=== PATIENT | female | born 1960 | race African-American/Black ===

== ENCOUNTER → 2023-09-08 18:44 | Outpatient (REF) | payer OTHER, SELFPAY | LOC: RAD 18:44 | PROVIDERS: ATTENDING PHYSICIAN Physician Assistant Medical; FAMILY PHYSICIAN Family Medicine | DX: M25.561 Pain in right knee (principal); M25.512 Pain in left shoulder | CPT/HCPCS: 73030; 73564 ==

== ENCOUNTER → 2023-10-30 19:23 | Outpatient (REF) | payer OTHER, SELFPAY | LOC: MRI 3T 19:23 | PROVIDERS: ATTENDING PHYSICIAN Family Medicine | DX: M25.561 Pain in right knee (principal); M67.814 Other specified disorders of tendon, left shoulder; M25.512 Pain in left shoulder | CPT/HCPCS: 73221; 73721 ==

== ENCOUNTER 2024-01-10 13:20 | Observation (INO) | payer OTHER, SELFPAY ==
[2024-01-10] VITALS (10 sets, daily range): BP systolic 81–128; BP diastolic 47–86; BMI 24.7; BMI 25.3
--- NOTE | 2024-01-10 09:11 | ED.GENMED ---
History of Present Illness
General
Chief Complaint: Rectal Bleeding
Source: patient
Exam Limitations: none
Time Seen by Provider: 01/10/24 09:10
Nursing documentation reviewed up to this point in time: agreed with
History of Present Illness
History of Present Illness:
63-year-old female with history of patient presents to the Emergency Department with rectal bleeding.
12/23/23, travelling out of on license of [facility], called PCP Dr. Barfield for LLQ pain and started Augmentin 875 BID which she took for 4 days then stopped as she felt better.
12/[address] Rice, all good, encouraged to make f/u appointment with PCP for 01/04 but never did as asymptomatic
12/29-12/31 had unusual vaginal bleeding (she is on Prempro so she stopped that and bleeding stopped). No vaginal bleeding since
Has had mild LLQ pain intermittently during this time
Today awakened with urge to defecate, had large amount liquid blood per rectum x 2. A third time, passed a large clot. (Pictures shown to me)
Denies SOB, CP, fever, feels a little lightheaded, has mild LLQ pain at this time.
Last colonoscopy 5 yrs ago at [facility], showing diverticulosis
Past History
Past History
ED Past Medical History: None
ED Past Surgical History: None
Social History
Tobacco: Non-smoker
Alcohol: Occasional
Personal:
Living: with family
Employment: Employed
Review of Systems
Review of Systems
Allergies reviewed?: Yes
All Other Systems: ROS reviewed and negative except as documented in HPI and ROS
Constitutional: Denies fever or fatigue
Respiratory: Denies trouble breathing
Cardiac: Denies chest pain
ABD/GI: Reports abdominal pain and bloody stools; Denies nausea or vomiting
: Denies dysuria, difficulty voiding or urgency
Musculoskeletal: Reports no symptoms
Skin: Reports no symptoms
Neurological: Reports no symptoms
Phy Exam
Physical Exam
Physical Exam:
GENERAL: No acute distress. A&Ox3.
CONSTITUTIONAL: Afebrile.
EYES: PERRL, conjunctivae normal
ENMT: moist mucus membranes, Pharynx nl
RESPIRATORY: Regular respirations, nonlabored, lungs clear.
CARDIOVASCULAR: Regular rate and rhythm, no murmurs, no rubs.
GI: Soft, mild LLQ tenderness, normal BS
Rectal: maroon stool heme positive
MUSCULOSKELETAL: Moves with ease. Well perfused.
SKIN: Warm, dry, normal
PSYCH: Normal mood and affect. Well kept, interactive and appropriate
NEUROLOGIC: Awake, alert and oriented. No focal neurological deficits
Course
Orders/Labs/Results
Orders:
Orders
01/10/24 09:32
IV Insert/Care/Rem.- Treatment PRN
01/10/24 09:33
0.9% Sodium Chloride 1000 ml [Nss] 1,000 ml IV BOLUS
01/10/24 09:34
CT Abd/Pel (IV only)-DH only Urgent
Comment:
Reason For Exam: rectal bleeding LLQ pain
01/10/24 09:47
Complete Blood Count/With Diff Urgent
Comprehensive Metabolic Panel Urgent
Lipase Urgent
PTT Urgent
Prothrombin Time Urgent
01/10/24 12:10
GASTROINTESTINAL CONSULT Urgent
Consulting Provider: Terry Patel
Was physician already notified: Yes
Reason for consult: Rectal bleeding
01/10/24 13:02
Admit/Transfer Patient As Directed
Co-Sign Provider:
Level of Care: Observation services
Assign to:: Medical/Surgical
Physician / Group: son ambrocio
Diagnosis: bright red blood per rectum concern divertic bleed vs diverticulitis
Code Status As Directed
Resuscitation Status: Full Code
01/10/24 13:04
PRN Pain Medication Management As Directed
May give lesser potent ordered pain med per pt: Yes
preference::
Protocol:: Medication orders for pain may be administered in a
manner that supports deferring to patient preference
when the pt is:
- Requesting an ordered lesser potent pain medication.
Least to most potent pain medications are defined
as: acetaminophen < NSAID < tramadol < opioids
(morphine, oxycodone, hydromorphone).
- Requesting a lesser dose of the same medication IF
ORDERED.
- Requesting a less intrusive route of administration
if both routes are prescribed by the provider (PO <
IV).
01/10/24 Dinner
Full Liquids
At Your Request: Full Participation
01/10/24 15:01
Acetaminophen [Tylenol] 650 mg PO Q4HPRN PRN
01/10/24 15:01
Activity As Directed
Activity Level: As Tolerated
Pneumatic Compression Sleeves As Directed
Type: Knee high
Vital Signs As Directed
Frequency: Per unit guidelines
Pt Eval And Treat Routine
Activity Level: As Tolerated
DX Deep Vein Thrombosis Video Routine
01/10/24 16:00
Type+Screen Urgent
BBK Wristband Number:
01/10/24 21:00
H&H Urgent
01/11/24 06:00
Complete Blood Count/With Diff IN AM
Comprehensive Metabolic Panel IN AM
01/11/24 08:00
conj estrog-medroxyprogest costa [Prempro] 1 tablet PO DAILY
Abnormal Lab Results
01/10/24
09:47
RBC 3.48 L 10^6/uL
(4.20-5.40)
Hgb 11.3 L g/dL
(12.0-16.0)
Hct 32.7 L %
(37.0-47.0)
MCH 32.5 H pg
(27.0-31.0)
MPV 11.6 H fL
(7.4-10.4)
Lymphocytes % 19.8 L %
(20.5-51.1)
Total Protein 6.2 L g/dl
(6.3-8.2)
01/10/24 09:47
01/10/24 09:47
Vital Signs
Initial and Last Documented VS:
Initial Vital Signs
Temp Pulse Resp BP Pulse Ox
97.9 F 85 16 122/79 98
01/10/24 08:48 01/10/24 08:48 01/10/24 08:48 01/10/24 08:48 01/10/24 08:48
Last Documented Vital Signs
Temp Pulse Resp BP Pulse Ox
97.7 F 93 16 98/57 100
01/10/24 16:00 01/10/24 16:00 01/10/24 16:00 01/10/24 16:00 01/10/24 16:00
MDM/Problems Addressed
Differential Diagnosis Includes:
Diverticulitis, ruptured diverticulum, internal hemorrhoid
MDM/Problems Addressed:
63-year-old female with history of patient presents to the Emergency Department with rectal bleeding.
12/23/23, travelling out of on license of [facility], called PCP Dr. Barfield for LLQ pain and started Augmentin 875 BID which she took for 4 days then stopped as she felt better.
12/[address] Rice, all good, encouraged to make f/u appointment with PCP for 01/04 but never did as asymptomatic
12/29-12/31 had unusual vaginal bleeding (she is on Prempro so she stopped that and bleeding stopped). No vaginal bleeding since
Has had mild LLQ pain intermittently during this time
Today awakened with urge to defecate, had large amount liquid blood per rectum x 2. A third time, passed a large clot. (Pictures shown to me)
Denies SOB, CP, fever, feels a little lightheaded, has mild LLQ pain at this time.
Last colonoscopy 5 yrs ago 'diverticulosis.'
10:15
CBC Hgb 11.3
CMP Normal
12:[address] abd/pelvis w IV only contrast radiology report read: IMPRESSION:
No evidence for an acute inflammatory process in the abdomen or pelvis. Extensive colonic diverticulosis, without evidence for acute diverticulitis.
In to see pt: she just had another large liquid bloody stool.
Plan: Admit, GI consult Consider colonoscopy, CTA
Hospitalist notified of admisison
*Critical Care Note
Total Time (30-74mins, 75-104mins- exclusive of procedures): Not Applicable
ED Attending Note
-
Portions of this chart may have been created with voice recognition software.� Occasional wrong word or��sound alike� substitutions may have occurred due to the inherent limitations of voice recognition software.
Discharge Plan
Departure
Patient Disposition: Admit
Date of Disposition: 01/10/24
Time of Disposition: 12:08
Admit to: Med/Surg
Presentation/result/management discussed w/ accepting MD/DO: Hospitalist
Condition: Fair
Discharge Problem:
Rectal bleeding
Interventions
Interventions:
*General Assessment Last Done: 01/10/24 08:48
*Neglect/Abuse Screening Last Done: 01/10/24 08:48
ED- Fall Risk Assessment Last Done: 01/10/24 10:28
*Nursing Disposition Last Done: 01/10/24 14:31
ES-Yngynw-Zjcrvhxlou Assessment Last Done: 01/10/24 10:28
ED- Cardiac Assessment Last Done: 01/10/24 10:28
ED- Pulmonary Assessment Last Done: 01/10/24 10:28
Discharge Date and Time
Discharge Date/Time: 01/10/24 14:31
[2024-01-10] MEDS: NSS 1000 IV (10:06)
[2024-01-10 10:17] LABS: % Basophils 0.7 % (0-2); % Immature Granulocytes 0.5 % (0-0.5); % Lymphocytes 19.8 % (20.5-51.1); % Monocytes 7.7 % (1.7-9.3); % Neutrophils 69.3 % (42.2-75.2); Absolute Eosinophils 0.1 10^3/uL (0-0.7); Absolute Lymphocytes 1.2 10^3/uL (1.2-3.4); Absolute Monocytes 0.5 10^3/uL (0.1-0.6); Absolute Neutrophils 4.2 10^3/uL (1.4-6.5); Hematocrit 32.7 % (37.0-47.0); Hemoglobin 11.3 g/dL (12.0-16.0); Mean Corp Hgb Conc. 34.6 g/dL (33.0-37.0); Mean Corpuscular Hgb 32.5 pg (27.0-31.0); Mean Platelet Volume 11.6 fL (7.4-10.4); Nucleated Red Blood Cells % 0 %; Platelet Count 202 10^3/uL (130-400); Red Blood Cell Count 3.48 10^6/uL (4.20-5.40); Red Cell Dist. Width 13.9 % (11.5-14.5)
[2024-01-10 10:22] LABS: INR 0.98; PT 12.8 Sec (11.4-14.6)
[2024-01-10 10:23] LABS: APTT 26.7 Sec (23.4-35.0)
[2024-01-10 10:35] LABS: ALT (SGPT) 11 U/L (0-35); AST (SGOT) 21 U/L (14-36); Albumin 3.8 g/dl (3.5-5.0); Alkaline Phosphatase 52 U/L (38-126); Blood Urea Nitrogen 14 mg/dl (7-17); Carbon Dioxide 25 mmol/L (22-30); Chloride 107 mmol/L (98-107); Estimated Creatinine Clearance 77 ml/min; Glucose 96 mg/dl (70-99); Lipase 122 U/L (23-300); Potassium 4.1 mmol/L (3.5-5.1); Sodium 138 mmol/L (135-145); Total Bilirubin 0.6 mg/dl (0.2-1.3); Total Protein 6.2 g/dl (6.3-8.2); eGFR > 60.00
--- NOTE | 2024-01-10 12:30 | HPS.HSE ---
Family Physician
-
Family Physician: Rubin Barfield
Chief Complaint
-
Bright red blood per rectum, left lower quadrant pain 2.5 weeks ago
History of Present Illness
63-year-old female complaining of rectal bleeding. She reports a large amount of liquid blood per rectum x 2 this morning then a third episode with a large clot. While traveling out of state on 12/19/2023 she had left lower quadrant abdominal pain
with formed stool and 1 episode of rectal bleeding along with episode of vaginal bleeding and was started on 875 mg twice daily of Augmentin for which she took 4 days and felt better. She denies headache, sore throat, fever, chills, chest pain,
palpitations, shortness breath, cough, abdominal pain, nausea, vomiting, urinary symptoms. She never had follow-up. The patient did take 2 tablets of Excedrin yesterday for headache. Past medical history of diverticulosis, migraine headaches,
postmenopausal bleeding. There is family history maternal aunt and paternal uncle of colon cancer.
Medical History
Past Medical History
Past Medical History: Reports Other
Additional Past Medical History:
diverticulosis
migraine headaches,
postmenopausal bleeding.
Past Surgical History: Reports Other
Additional Past Surgical History:
Ganglion cyst removal
Social History
Tobacco: Non-smoker
Alcohol: None
Drug: None
Personal:
Living: With Family
Employment: Employed
Family History
Family History: Other (Mother breast cancer age 30, father dementia, maternal aunt, paternal uncle colon cancer)
Allergies / Home Medications
Allergies reflects when Allergies were last updated in [employer].
Home Medications with original date entered in [employer]
Allergy/Medication List:
Allergies
Allergy/AdvReac Type Severity Reaction Status Date / Time
No Known Allergies Allergy Verified 01/10/24 08:47
Home Medications
zenkozq-eqkqyyrpjptzw-zjwuggfw 250 mg-250 mg-65 mg tablet (Excedrin Extra Strength) 1 tab PO DAILYPRN PRN mirgraines 01/10/24
conj estrogen-medroxyprogesterone 0.45 mg-1.5 mg tablet (Prempro) 1 tab PO DAILY 01/10/24
Review of Systems
-
History Source: Patient
A 12 point ROS was completed and negative except as noted: Yes
Constitutional: Denies Fever or Chills
EENT: Denies Sore Throat or Runny Nose
Respiratory: Denies Cough or Trouble Breathing
Cardiac: Denies Chest Pain, Diaphoresis or Syncope
Abdomen/GI: Reports Abdominal Pain (Left lower quadrant) and Other (Bright red blood per rectum with large clot); Denies Nausea, Vomiting or Diarrhea
: Denies Dysuria, Frequency, Flank Pain or Incontinence
Musculoskeletal: Denies Joint Pain or Edema
Skin: Denies Itching or Rash
Neurological: Denies Dizzy, Headache or Weakness
Endocrine: Reports No Symptoms
Hematologic/Lymphatic: Reports No Symptoms
Psych: Reports Calm
Physical Exam
Vital Signs
Vital Signs
Temp Pulse Resp BP Pulse Ox
97.9 F 68 14 119/86 99
01/10/24 08:48 01/10/24 11:00 01/10/24 11:00 01/10/24 11:00 01/10/24 11:00
Physical Exam
General: Comfortable and Conversant; No Pain, Fever or Chills
HEENT: NormoCephalic, Anicteric, Moist mucous membranes, PERRLA, [place] Conjunctivae and No Ptosis
Respiratory: Clear; No Wheezes, Rales or Rhonchi
Cardiac: S1/S2 and Regular Rhythm; No Murmur, Rub, Gallop or Peripheral Edema
GI: Soft, Non Tender, Non Distended and Normal Bowel Sounds
Rectal: Other (Per ER had)
Musculoskeletal: No Clubbing and No Cyanosis
Skin: Warm and Dry
Neuro: AO x 3, No Motor Deficits, Nonfocal/grossly intact, Cranial Nerves Intact and No Sensory Deficits; No Slurred Speech, Facial Droop or Tremors
Psych: Calm
Laboratory Results
-
01/10/24 09:47
01/10/24 09:47
Laboratory Results
PT 12.8 Sec (11.4-14.6) 01/10/24 09:47
INR 0.98 01/10/24 09:47
APTT 26.7 Sec (23.4-35.0) 01/10/24 09:47
Total Bilirubin 0.6 mg/dl (0.2-1.3) 01/10/24 09:47
AST 21 U/L (14-36) 01/10/24 09:47
ALT 11 U/L (0-35) 01/10/24 09:47
Alkaline Phosphatase 52 U/L (38-126) 01/10/24 09:47
Lipase 122 U/L (23-300) 01/10/24 09:47
Impression/Plan
-
Impression/plan:
Observation MedSurg
#Bright red blood per rectum concern for diverticular bleed
Hgb 11.3
Type and screen
Will follow H&H
-Hold patient's Excedrin as needed for migraine as it contains aspirin
-Consult GI
CT abdomen pelvis with IV contrast: No acute inflammatory process in the abdomen or pelvis. Extensive colonic diverticulosis without diverticulitis
#Migraine headaches:
Hold patient's Excedrin as needed as it contains aspirin
# Postmenopausal bleeding managed with hormonal agents
-May continue Prempro
DVT prophylaxis
SCDs
Full code
--- NOTE | 2024-01-10 13:32 | W.PN.UPDATE ---
Update Note
Progress Note Update
This note serves as an addendum to the H&P by MARYANNE Myers, on January 10, 2024.
History of Presenting Illness
63-year-old female with past medical history of diverticulosis, migraine headaches and postmenopausal bleeding presented complaining of rectal bleeding. She reports a large amount of liquid blood per rectum x 2 this morning then a third episode with
a large dark clot(s), for which she showed images from her phone. While traveling out of state on 12/19/2023 she had left lower quadrant abdominal pain with formed stool and 1 episode of rectal bleeding along with episode of vaginal bleeding and was
started on 875 mg twice daily of Augmentin for which she took 4 days and felt better. She denied headache, sore throat, fever, chills, chest pain, palpitations, shortness breath, cough, abdominal pain, nausea, vomiting, or urinary symptoms. The
patient did take 2 tablets of Excedrin yesterday for headache. Patient has a family history of colon cancer.
Vital Signs
AFVSS
Physical Exam
General: Not in acute distress
HEENT: Normocephalic
Respiratory: Clear to Auscultation Bilaterally
Cardiac: S1/S2 and Regular Rhythm
GI: Soft, Non Tender, Non Distended and Normal Bowel Sounds
Musculoskeletal: No Cyanosis
Skin: Warm and Dry
Neuro: AAO x 3, No Motor Deficits, Nonfocal/grossly intact, Cranial Nerves Intact and No Sensory Deficits
Psych: Calm
Assessment/Plan
#Bright red blood per rectum concern for diverticular bleed
Hgb 11.3
Type and screen
Will follow H&H - recheck CBC this evening, if significant drop in Hgb then transfuse 1 unit of PRBC
-Hold patient's Excedrin as needed for migraine as it contains aspirin
-Consult GI
CT abdomen pelvis with IV contrast: No acute inflammatory process in the abdomen or pelvis. Extensive colonic diverticulosis without diverticulitis
#Migraine headaches:
Hold patient's Excedrin as needed as it contains aspirin
# Postmenopausal bleeding managed with hormonal agents
-May continue Prempro
-Will consider gynecology consult, but patient's last vaginal bleeding was 12 days ago
DVT prophylaxis
SCDs
Full code
[2024-01-10 16:18] LABS: Hematocrit 30.6 % (37.0-47.0); Hemoglobin 10.3 g/dL (12.0-16.0); Mean Corp Hgb Conc. 33.7 g/dL (33.0-37.0); Mean Corpuscular Volume 92.2 fL (81.0-99.0); Mean Platelet Volume 11.6 fL (7.4-10.4); Platelet Count 219 10^3/uL (130-400); Red Blood Cell Count 3.32 10^6/uL (4.20-5.40); Red Cell Dist. Width 14.2 % (11.5-14.5)
[2024-01-10 19:44] LABS: Hematocrit 30.3 % (37.0-47.0); Hemoglobin 10.3 g/dL (12.0-16.0)
--- NOTE | 2024-01-10 23:20 | PTCARENOTE ---
pt was using bathroom felt lightheaded and dizzy. assisted back to bed. BP=81/47 hr=57. pt resting in bed. recheck GN=849/65 HR=76. pt has had 3 bloody bowl movements since 7pm. pt states she feels she now feels better.
[2024-01-11] VITALS (7 sets, daily range): BP systolic 90–131; BP diastolic 49–80; PULSE 81–115
[2024-01-11 07:02] LABS: % Basophils 0.5 % (0-2); % Eosinophils 2.7 % (0-6); % Immature Granulocytes 0.2 % (0-0.5); % Monocytes 7.1 % (1.7-9.3); % Neutrophils 60.5 % (42.2-75.2); Absolute Eosinophils 0.2 10^3/uL (0-0.7); Absolute Lymphocytes 1.6 10^3/uL (1.2-3.4); Absolute Monocytes 0.4 10^3/uL (0.1-0.6); Absolute Neutrophils 3.4 10^3/uL (1.4-6.5); Hematocrit 28.2 % (37.0-47.0); Hemoglobin 9.6 g/dL (12.0-16.0); Mean Corpuscular Hgb 32.8 pg (27.0-31.0); Mean Corpuscular Volume 96.2 fL (81.0-99.0); Mean Platelet Volume 11.8 fL (7.4-10.4); Nucleated Red Blood Cells % 0 %; Platelet Count 182 10^3/uL (130-400); Red Blood Cell Count 2.93 10^6/uL (4.20-5.40); Red Cell Dist. Width 14.2 % (11.5-14.5); White Blood Cell Count 5.6 10^3/uL (4.8-10.8)
[2024-01-11 07:18] LABS: ALT (SGPT) < 10 U/L (0-35); AST (SGOT) 17 U/L (14-36); Albumin 3.4 g/dl (3.5-5.0); Alkaline Phosphatase 51 U/L (38-126); Blood Urea Nitrogen 10 mg/dl (7-17); Calcium 8.9 mg/dl (8.4-10.2); Carbon Dioxide 25 mmol/L (22-30); Chloride 105 mmol/L (98-107); Estimated Creatinine Clearance 68 ml/min; Glucose 93 mg/dl (70-99); Potassium 4.3 mmol/L (3.5-5.1); Sodium 136 mmol/L (135-145); Total Bilirubin 0.5 mg/dl (0.2-1.3); Total Protein 5.6 g/dl (6.3-8.2); eGFR > 60.00
--- NOTE | 2024-01-11 10:20 | W.PN.HOSP.TC ---
Today's Communication/Plan
-
Continue to monitor Hgb every 6 hours given patient's bleeding per rectum
Closely monitor vital signs and if symptoms of anemia develop with Hgb less than 10, will need to tranfuse PRBC
Appreciate gastroenterology and gynecology's evaluation of the patient
Assessment / Plan
Assessment / Plan
Physical Exam
General: Not in acute distress
HEENT: Normocephalic
Respiratory: Clear to Auscultation Bilaterally
Cardiac: S1/S2 and Regular Rhythm
GI: Soft, Non Tender, Non Distended and Normal Bowel Sounds
Musculoskeletal: No Cyanosis
Skin: Warm and Dry
Neuro: AAO x 3, No Motor Deficits, Nonfocal/grossly intact, Cranial Nerves Intact and No Sensory Deficits
Psych: Calm

CT Abdomen/Pelvis (as per radiologist's report)
'CHEST: The lung bases are clear.
ABDOMEN:
Stable 1.3 cm hemangioma at the hepatic dome. Tiny left hepatic lobe cyst. The gallbladder, bile ducts, pancreas, and spleen are unremarkable. Minor thickening of the bilateral adrenal glands. Left lower pole renal cyst measuring 5.4 cm. No
hydronephrosis.
The abdominal aorta is normal in caliber.
No abdominal or retroperitoneal lymphadenopathy.
Extensive colonic diverticulosis, without evidence for acute diverticulitis. No bowel wall thickening, obstruction, or inflammation. No extraluminal free air or fluid collection. Normal appendix.
PELVIS: Trace pelvic ascites. The urinary bladder and uterus are unremarkable.
SKELETON: No suspicious osseous lesion.
IMPRESSION:
No evidence for an acute inflammatory process in the abdomen or pelvis. Extensive colonic diverticulosis, without evidence for acute diverticulitis.'

Assessment/Plan
#Bright red blood per rectum concern for diverticular bleed
-Described as 'tissue' with blood from the rectum
-Hgb 11.3 initially, now down to 9.6, patient received IV fluids initially, and platelets are down so could be a component of hemodilution
-Continue to follow H&H --> if Hgb continues to drop and remains less than 10, patient is still passing blood per rectum, and having symptoms of anemia, will need to transfuse blood
Type and screen, consent for blood transfusion already obtained from the patient in the ER on the day of admission
-Hold patient's Excedrin as needed for migraine as it contains aspirin
-Consulted GI, appreciate recommendations
-Consulted gynecology
#Migraine headaches
-Hold patient's Excedrin as needed as it contains aspirin
# Postmenopausal bleeding managed with hormonal agents
-Consulted gynecology, appreciate evaluation and recommendations
#Weight loss recently
-Patient said she is up-to-date on all her cancer screening
-Possibly from any dietary changes
DVT prophylaxis
SCDs
Full code
Anticipated Discharge: 24 - 48 hours
Subjective/Interval History
-
Date of Service: January 11, 2024
Patient was seen and examined. She reported she had a bowel movement last night -- but it was more like tissue blood texture rather than actual stool, this morning she said she passed more tissue but it was better per her.
Objective Data
-
Labs:
Laboratory Results
01/11/24
05:42
WBC 5.6
Hgb 9.6 L
Hct 28.2 L
Plt Count 182
Sodium 136
Potassium 4.3
Chloride 105
Carbon Dioxide 25
BUN 10
Creatinine 0.9
Glucose 93
Calcium 8.9
Total Bilirubin 0.5
AST 17
ALT < 10
Alkaline Phosphatase 51
Vital Signs:
Vital Signs
Temp Pulse Resp BP Pulse Ox
97.4 F 85 16 117/64 98
01/11/24 07:55 01/11/24 07:55 01/11/24 07:55 01/11/24 07:55 01/11/24 07:57
I&O
01/10/24 01/11/24 01/12/24
06:59 06:59 06:59
Intake Total 480 / 480
Balance 480 / 480
--- NOTE | 2024-01-11 12:19 | CON.MD ---
Consultation - Medical
-
63yo was admitted to the hospital yesterday due to abdominal pain and rectal bleeding. She is being seen by GI and endoscopy and colonoscopy is planned for tomorrow. In addition to that however, she also admits to a recent episode of vaginal
bleeding in the week of 12/28. Lasted for 3-4 days, was bleeding like a period. She is on Prempro prescribed by SPORTS NUTRITION[facility] Dr. Gomez for helping with her mood and body image/weight. She denies bothersome VMS. She says she normally takes her pill daily, she
may have taken an extra pill around the time of the bleeding. She stopped the medication for a short time when bleeding was ongoing but has since resumed it. She denies previous other episodes of PMB. She was seen by her SPOR[facility] NUTRITIONIST in 10/2023 and says her
exam and pap were normal at that time.
She also has had a semi-intentional weight loss since August. Initially was stressed and appetite was decreased, so lost weight, then she started to diet and intermittent fast and has now lost about 30 pounds. She denies n/v/f/c
She does have a family h/o Breast, ovarian and Colon CA.
PMHx: Diverticulosis, Migraine
PSHx: Ganglion cyst removal
POBHx: x 2
PGYNHx: as above
FHx: M. Aunt- ovarian Ca, M. Aunt- colon CA, M. Uncle x2- colon CA, Mom- Breast CA, Sister-BRCA Neg
SHx: Neg x3
All: NKDA
Meds: see Med List
Vitals & Labs: see below
Gen: nad, well appearing
Abd: soft, mild ttp, nd
SSE: scant off white discharge noted in the vagina. no BRB, cervix is normal appearance
SVE: cvx is nontender, no CMT, uterus is non tender. fullness appreciated in the right adnexa, with mild ttp, no specific mass or nodularity felt.
CT A/P: No evidence for an acute inflammatory process in the abdomen or pelvis. Extensive colonic diverticulosis, without evidence for acute diverticulitis.
A/P:63yo with rectal bleeding and 1 episode of PMB
1. Rectal Bleeding- GI involved, patient to start bowel prep this afternoon in anticipation of colonoscopy tomorrow
-CBC being trended- slight decrease in hgb from admission 10.3-> 9.6
2. Post menopausal bleeding- No active vaginal bleeding at this time. Reviewed that the most common side effect of HRT is bleeding. Patient thinks she may have taken her medication incorrectly so it is possible that this was the cause of her
bleeding episode. However I advised that additional evaluation is warranted to r/o other causes such as structural defects to uterus, hyperplasia/malignancy. Advised we proceed with a Pelvic US- patient will get this done after her colonoscopy
tomorrow. Endometrial sampling should also eventually be performed. This can likely be done as an outpatient with her SP[facility] NUTRITIONIST, unless Pelvic US is very concerning, then can consider D&C during this admission.
I recommend she stop her HRT during this hospitalization until she completes her evaluation for PMB.
Encounter, review of chart and Documentation Time= 60 mins
Vital Signs and Labs
-
Vital Signs and Labs:
Vital Signs
Temp Pulse Resp BP Pulse Ox
98.0 F 77 16 120/73 99
01/11/24 11:00 01/11/24 11:00 01/11/24 11:00 01/11/24 11:00 01/11/24 11:00
Lab Results
01/11/24 05:42
PT 12.8 Sec (11.4-14.6) 01/10/24 09:47
INR 0.98 01/10/24 09:47
APTT 26.7 Sec (23.4-35.0) 01/10/24 09:47
Sodium 136 mmol/L (135-145) 01/11/24 05:42
Potassium 4.3 mmol/L (3.5-5.1) 01/11/24 05:42
BUN 10 mg/dl (7-17) 01/11/24 05:42
Glucose 93 mg/dl (70-99) 01/11/24 05:42
Calcium 8.9 mg/dl (8.4-10.2) 01/11/24 05:42
[2024-01-11 13:14] LABS: Hepatitis C Antibody Negative (Negative)
[2024-01-11 13:26] LABS: Hematocrit 28.5 % (37.0-47.0); Hemoglobin 9.8 g/dL (12.0-16.0)
[2024-01-11] MEDS: NULYTELY SOLUTION 4 LITERS PO (14:17)
--- NOTE | 2024-01-11 15:05 | CON.GI ---
Consultation
-
Date/Time Consultation Requested: 01/10/2024
Date/Time Consultation Performed: 01/11/2024
Requesting Provider: Hospitalist
Performing Provider: Elodia RANGEL
Reason for Consultation: Rectal bleeding
Medical History
Chief Complaint / HPI
Chief Complaint: Rectal bleeding
History of Present Illness:
63-year-old male with history of migraine admitted to ED with rectal bleeding for 2 days. Multiple bowel movement with bright red/maroon blood and clots. She was having mild left lower quadrant discomfort as well. No prior episode of rectal
bleeding. Last colonoscopy 5 years back-as per patient diverticulosis/colon polyps. Multiple second-degree relatives with history of colon cancer. Currently denies any abdominal pain/nausea/vomiting. She has been trying to lose weight since
August with intermittent fasting/adjustment of diet. She also had experience vaginal bleeding 12/29/2023 evaluated by [facility].
Past Medical History
Past Medical History: Other (Migraine, postmenopausal bleeding)
Past Surgical History: Other (Ganglion cyst removal)
Social History
Tobacco: Non-Smoker
Alcohol: None
Drug: None
Allergies / Home Medications
Allergy/AdvReac Type Severity Reaction Status Date / Time
No Known Allergies Allergy Verified 01/10/24 08:47
�Medication �Instructions �Recorded
xyspdbp-oyxkgveekyoqb-ajiiqdle 250 1 tab PO DAILYPRN PRN mirgraines 01/10/24
mg-250 mg-65 mg tablet (Excedrin
Extra Strength)
conj estrogen-medroxyprogesterone 1 tab PO DAILY Hormonal Agent 01/10/24
0.45 mg-1.5 mg tablet (Prempro)
Review of Systems
Vital Signs
Temp Pulse Resp BP Pulse Ox
98.0 F 77 16 120/73 99
01/11/24 11:00 01/11/24 11:00 01/11/24 11:00 01/11/24 11:00 01/11/24 11:00
Physical Exam
Exam
General: No Apparent Distress
Respiratory: Clear
Cardiac: S1/S2
GI: Soft, Non Tender, Non Distended and Normal Bowel Sounds
Results
WBC 5.6 10^3/uL (4.8-10.8) 01/11/24 05:42
Hgb 9.8 g/dL (12.0-16.0) L 01/11/24 13:00
Hct 28.5 % (37.0-47.0) L 01/11/24 13:00
MCV 96.2 fL (81.0-99.0) 01/11/24 05:42
Plt Count 182 10^3/uL (130-400) 01/11/24 05:42
Absolute Neuts (auto) 3.4 10^3/uL (1.4-6.5) 01/11/24 05:42
PT 12.8 Sec (11.4-14.6) 01/10/24 09:47
INR 0.98 01/10/24 09:47
APTT 26.7 Sec (23.4-35.0) 01/10/24 09:47
Sodium 136 mmol/L (135-145) 01/11/24 05:42
Potassium 4.3 mmol/L (3.5-5.1) 01/11/24 05:42
Chloride 105 mmol/L (98-107) 01/11/24 05:42
Carbon Dioxide 25 mmol/L (22-30) 01/11/24 05:42
BUN 10 mg/dl (7-17) 01/11/24 05:42
Creatinine 0.9 mg/dL (0.6-1.0) 01/11/24 05:42
Calcium 8.9 mg/dl (8.4-10.2) 01/11/24 05:42
Total Bilirubin 0.5 mg/dl (0.2-1.3) 01/11/24 05:42
AST 17 U/L (14-36) 01/11/24 05:42
ALT < 10 U/L (0-35) 01/11/24 05:42
Alkaline Phosphatase 51 U/L (38-126) 01/11/24 05:42
Lipase 122 U/L (23-300) 01/10/24 09:47
Hepatitis C Antibody Negative (Negative) 01/11/24 05:42
Diagnostic Image Results:
CT abdomen/pelvis with IV contrast 01/10/2024
No evidence of inflammatory process in the abdomen or pelvis. Extensive colonic diverticulosis without diverticulitis
Prior GI Procedures:
EGD: None
Colonoscopy: 5 years back at outside facility
Assessment / Plan
-
63-year-old female with history of migraine admitted with bright red blood per rectum/passing clots for 2 days. Initially she had left lower quadrant abdominal pain which resolved now. CT abdomen on admission showing diverticulosis without
diverticulitis. Last colonoscopy 5 years back at outside facility�colon polyps/diverticulosis. Multiple second-degree relatives with history of colon cancer.
-- Rectal bleeding . Likely differential-diverticular bleed versus colitis versus AVM etc.
-- Abdominal pain-currently resolved
plan
Clear liquid diet
Continue monitor Hb
Discussed benefits and risk of colonoscopy. Patient verbalized understanding and is agreeable for the procedure. Will schedule for colonoscopy tomorrow
Bowel prep today
Total Time Spent with Patient (in minutes): 55
-
-
Thank you for consultation and allowing me to participate in the patient's care. Please call the registration specialist GI physician during the after hours with any questions or concerns.
--- NOTE | 2024-01-11 16:08 | PTCARENOTE ---
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 VSS. Telemetry:NSR. On room air- pulse ox 99%. Abd soft, rounded, sridhar clear liquids; pt reports (+) bloody stools with small clots. Currently tolerating bowel prep; aware
of NPO past midnight for colonoscopy om 01/11. Pt voiding in BR with out difficulty; pt denies vaginal bleeding. Resting comfortably at present. Will continue to monitor.
--- NOTE | 2024-01-11 16:53 | CM ---
met with patient at bedside.patient lives alone in one story house with 4 danuta,her baed and bath is on the first level,she amb i and is I with hr adl.,dr forrest is her pcp and she uses [facility] in [place],she has never had a vn or been to ip
rehab.
PMH:migranes,post menapausal bleeding
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
[2024-01-11 18:42] LABS: Hematocrit 30.4 % (37.0-47.0); Hemoglobin 10.5 g/dL (12.0-16.0)
[2024-01-12] VITALS (9 sets, daily range): BP systolic 18–134; BP diastolic 63–79
--- NOTE | 2024-01-12 00:05 | PTCARENOTE ---
Pt completed and tolerated bowel prep. Pt stool is clear. Pt is resting comfortably w/ call flores within reach
--- NOTE | 2024-01-12 06:37 | W.PN.HOSP.TC ---
Today's Communication/Plan
-
discharge
Assessment / Plan
Assessment / Plan
Physical Exam
General: Not in acute distress
HEENT: Normocephalic
Respiratory: Clear to Auscultation Bilaterally
Cardiac: S1/S2 and Regular Rhythm
GI: Soft, Non Tender, Non Distended and Normal Bowel Sounds
Musculoskeletal: No Cyanosis
Skin: Warm and Dry
Neuro: AAO x 3, No Motor Deficits, Nonfocal/grossly intact, Cranial Nerves Intact and No Sensory Deficits
Psych: Calm

CT Abdomen/Pelvis (as per radiologist's report)
'CHEST: The lung bases are clear.
ABDOMEN:
Stable 1.3 cm hemangioma at the hepatic dome. Tiny left hepatic lobe cyst. The gallbladder, bile ducts, pancreas, and spleen are unremarkable. Minor thickening of the bilateral adrenal glands. Left lower pole renal cyst measuring 5.4 cm. No
hydronephrosis.
The abdominal aorta is normal in caliber.
No abdominal or retroperitoneal lymphadenopathy.
Extensive colonic diverticulosis, without evidence for acute diverticulitis. No bowel wall thickening, obstruction, or inflammation. No extraluminal free air or fluid collection. Normal appendix.
PELVIS: Trace pelvic ascites. The urinary bladder and uterus are unremarkable.
SKELETON: No suspicious osseous lesion.
IMPRESSION:
No evidence for an acute inflammatory process in the abdomen or pelvis. Extensive colonic diverticulosis, without evidence for acute diverticulitis.'

Assessment/Plan
63F Diverticulosis Migraines p/w BRBPR and recent history postmenopausal bleeding.
#Bright red blood per rectum likely diverticular bleed since resolved
#Acute Blood Loss Anemia Mild
-H&H stable, no transfusion needed during stay
Consult GI appreciated Colonoscopy Performed 01/11
- Diverticulosis sigmoid descending transverse ascending colon, non-bleeding internal hemorrhoids, no active bleeding noted, likely diverticular bleeding
- ok to resume regular diet, repeat colonoscopy in 5 yrs recommended.
#Migraine headaches
-Ok to resume home prn Excedrin
# Postmenopausal bleeding managed with hormonal agents
-Consult gynecology appreciated
-Pelvic US unremarkable
-outpt follow up with Gynecology recommended
#Weight loss recently
-Patient said she is up-to-date on all her cancer screening
-Possibly from any dietary changes
DVT prophylaxis
SCDs
Full code
Total Time Preparing Discharge __40 minutes including examination of the patient, summary of the hospital stay, instructions for continuing care to all relevant caregivers; and preparation of discharge records, prescriptions, and referral
forms if necessary.
Anticipated Discharge: Today
Subjective/Interval History
-
Date of Service: January 12, 2024
Bloody bowel movements resolved. Denies Abd pain. Overall reports feeling well. Denies new acute issues. Eager to go home.
Objective Data
-
Labs:
Laboratory Results
01/11/24 01/12/24
18:34 05:55
Hgb 10.5 L Pending
Hct 30.4 L Pending
Vital Signs:
Vital Signs
Temp Pulse Resp BP Pulse Ox
97.7 F 76 16 107/63 98
01/12/24 03:41 01/12/24 03:41 01/12/24 03:41 01/12/24 03:41 01/12/24 03:41
I&O
01/10/24 01/11/24 01/12/24
06:59 06:59 06:59
Intake Total 480 / 480 690 / 690
Balance 480 / 480 690 / 690
[2024-01-12 07:54] LABS: Hematocrit 27.3 % (37.0-47.0); Hemoglobin 9.2 g/dL (12.0-16.0)
--- NOTE | 2024-01-12 13:31 | W.PN.OBG.DWH ---
Today's Communication / Plan
-
await pelvic us
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
Assessment/Plan
-
rectal bleeding
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
anemia
Subjective Data
-
no complaints. hungry, denies vaginal bleeding, await pelvic us
Objective Data
-
Laboratory Results
01/12/24 05:55
01/11/24 05:42
Vital Signs
Temp Pulse Resp BP Pulse Ox
97.7 F 79 18 123/67 99
01/12/24 13:20 01/12/24 13:20 01/12/24 13:20 01/12/24 13:20 01/12/24 13:20
--- NOTE | 2024-01-12 14:12 | W.PN.UPDATE ---
Update Note
Progress Note Update
likely discharge later today pending US results and Labwork CBC B12 Folate Iron TIBC
Ok to discontinue IV access
[2024-01-12 15:22] LABS: Iron 56 ug/dl (37-170)
--- NOTE | 2024-01-12 15:24 | CM ---
Pt had colonoscopy today.
Spoke with pt in room .
Explained observation status to her.Copy on letter given to pt and one on chart unsigned0.
She said at [place] she declined need for VN .
She said her son will drive her home .
PLAN Home no needs
[2024-01-12 15:31] LABS: Percent Saturation 19 % (20-50); Total Iron Binding Capacity 284 ug/dl (265-497)
[2024-01-12 15:55] LABS: Hematocrit 27.7 % (37.0-47.0); Hemoglobin 9.5 g/dL (12.0-16.0); Mean Corp Hgb Conc. 34.3 g/dL (33.0-37.0); Mean Corpuscular Volume 93.3 fL (81.0-99.0); Mean Platelet Volume 11.4 fL (7.4-10.4); Platelet Count 202 10^3/uL (130-400); Red Blood Cell Count 2.97 10^6/uL (4.20-5.40); Red Cell Dist. Width 14.1 % (11.5-14.5); White Blood Cell Count 6.1 10^3/uL (4.8-10.8)
[2024-01-12 16:30] LABS: Folate 8.8 ng/ml (2.76-20); Vitamin B12 460 pg/ml (239-931)
[2024-01-12] MEDS: FEOSOL 325 MG PO (16:54)
--- NOTE | 2024-01-12 17:48 | W.PN.OBG.DWH ---
Today's Communication / Plan
-
pt instructed to fup with local system consultant
report us given to pt
Assessment/Plan
-
postmenopausal bleeding on HT
Subjective Data
-
no complaints
Objective Data
-
Laboratory Results
01/12/24 14:48
01/11/24 05:42
Vital Signs
Temp Pulse Resp BP Pulse Ox
97.9 F 79 18 126/78 97
01/12/24 15:36 01/12/24 15:36 01/12/24 15:36 01/12/24 15:36 01/12/24 15:36
pelvic ultrasound reviewed w pt. ems 1.7 mm. nml study
--- NOTE | 2024-01-12 18:55 | W.DCSUMMARY ---
Discharge Summary
Discharge Data
Date of Admission: 01/10/24
Date of Discharge: 01/12/24
-
Pending Results: No
Discharge Plan
-
Patient Disposition: Home (Routine Discharge)
Discharge Diagnosis/Procedures: Diverticular Bleed
Recent Postmenopausal Bleed
Mild Anemia due to Acute Blood Loss
Condition: Good
Diet: Regular
Activity: As tolerated
Driving Restrictions: As prior to admission
Bathing Restrictions: None
Blood Work: Please repeat CBC with primary care provider in 1 week of discharge and Iron studies in 1 month of discharge.
Activity Restrictions/Additional Instructions:
Please follow up with your primary care provider in 1 week of discharge, Gynecology in 1-2 weeks of discharge, and GI in 1 month of discharge.
Iron supplementation has been started for mild anemia. This is available over the counter.
Please take medications as prescribed/recommended and follow up with primary care provider and/or other healthcare provider involved in your care for refills and/or further adjustment to your medication regimen as necessary.
Instructions: Diverticulosis (DC)
Referrals:
Rubin Barfield DO [Family Provider] - in one week
Terry Patel MD [Active] - in one month
Nicolle Gomez MD [Non-Admitting Privileges] - in one to two weeks
Prescriptions:
New
ferrous sulfate [FeroSul] 325 mg (65 mg iron) Tablet
325 mg PO DAILY 30 Days Qty: 30 0RF
Continued
Excedrin Extra Strength 250-250-65 mg Tablet
1 tab PO DAILYPRN PRN (Reason: mirgraines)
Prempro 0.45-1.5 mg tablet
1 tab PO DAILY
Discharge Orders:
Discharge Patient (As Directed); Ordered 01/12/24
Ordered By: River Riley
Discharge Date and Time
Print Language: FAROESE
== END 2024-01-12 19:18 | disposition home or self-care (01) ==
LOC: 4 EAST ACU 13:20
PROVIDERS: Clinical Nurse Specialist Family Health; Nurse Practitioner Family; Registered Nurse; ADMITTING PHYSICIAN Hospitalist; ATTENDING PHYSICIAN Internal Medicine; CONSULT PHYSICIAN Internal Medicine Gastroenterology; CONSULT PHYSICIAN Obstetrics & Gynecology; EMERGENCY PHYSICIAN Emergency Medicine; FAMILY PHYSICIAN Family Medicine
DX: K57.31 Diverticulosis of large intestine without perforation or abscess with bleeding (principal); D62 Acute posthemorrhagic anemia; N95.0 Postmenopausal bleeding; G43.909 Migraine, unspecified, not intractable, without status migrainosus; K64.8 Other hemorrhoids; K76.89 Other specified diseases of liver; N28.1 Cyst of kidney, acquired; Z80.3 Family history of malignant neoplasm of breast; Z80.0 Family history of malignant neoplasm of digestive organs; Z79.890 Hormone replacement therapy; Z87.19 Personal history of other diseases of the digestive system; Z86.010 Personal history of colon polyps
CPT/HCPCS: 45378; 74177; 76830; 76856; 80053; 82607; 82746; 83540; 83550; 83690; 85014; 85018; 85025; 85027; 85610; 85730; 86803; 86850; 86900; 86901; 96360; 96361; 97161; 99285; G0378; Q9967

== ENCOUNTER → 2024-06-16 11:43 | Outpatient (REF) | payer OTHER, SELFPAY | LOC: RAD 11:43 | PROVIDERS: ATTENDING PHYSICIAN Nurse Practitioner Family | DX: M54.2 Cervicalgia (principal); M79.622 Pain in left upper arm | CPT/HCPCS: 72050 ==

== ENCOUNTER → 2024-06-20 07:08 | Outpatient (REF) | payer OTHER, SELFPAY | LOC: MRI 3T 07:08 | PROVIDERS: ATTENDING PHYSICIAN Physician Assistant; FAMILY PHYSICIAN Family Medicine | DX: M54.12 Radiculopathy, cervical region (principal) | CPT/HCPCS: 72141 ==

== ENCOUNTER → 2024-11-29 16:49 | Outpatient (REF) | payer OTHER, SELFPAY | LOC: RAD 16:49 | PROVIDERS: ATTENDING PHYSICIAN Physician Assistant Medical; FAMILY PHYSICIAN Family Medicine | DX: M25.552 Pain in left hip (principal) | CPT/HCPCS: 73502 ==

== ENCOUNTER → 2024-12-07 11:52 | Outpatient (REF) | payer OTHER, SELFPAY | LOC: WDC 11:52 | PROVIDERS: ATTENDING PHYSICIAN Family Medicine | DX: Z12.31 Encounter for screening mammogram for malignant neoplasm of breast (principal) | CPT/HCPCS: 77063; 77067 ==

== ENCOUNTER → 2025-03-31 09:09 | Outpatient (REF) | payer OTHER, SELFPAY | LOC: WDC 09:09 | PROVIDERS: ATTENDING PHYSICIAN Nurse Practitioner Family | DX: N64.4 Mastodynia (principal) | CPT/HCPCS: 76642 ==